=== PATIENT | female | born 1975 | race African-American/Black ===

== ENCOUNTER 2017-12-03 16:50 | Observation (INO) | payer OTHER ==
[~2017-12-03] VITALS: Ht 165.1 cm; Wt 90.0 kg
[~2017-12-03 16:50] MED LIST: ALEV220T14 PO
[2017-12-03 17:24] VITALS: BP 121/82; PULSE 75; RESP 18; TEMP 98.5; O2SAT 96
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
[2017-12-03 18:31] LABS: AUTOMATED NEUTROPHIL # 2.8 TH/MM3 (1.8-7.7); BASOPHIL % 0.8 % (0.0-2.0); EOSINOPHIL # 0.1 TH/MM3 (0-0.4); EOSINOPHIL % 1.7 % (0.0-4.0); HEMATOCRIT 47.5 % (35.0-46.0); HEMOGLOBIN 15.9 GM/DL (11.6-15.3); LYMPH % 33.4 % (9.0-44.0); LYMPHOCYTE # 1.7 TH/MM3 (1.0-4.8); MEAN CELL VOLUME 86.1 FL (80.0-100.0); MEAN CORPUSCULAR HEMOGLOBIN 28.9 PG (27.0-34.0); MEAN CORPUSCULAR HGB CONC 33.6 % (32.0-36.0); MEAN PLATELET VOLUME 7.9 FL (7.0-11.0); MONO % 8.6 % (0.0-8.0); MONOCYTE # 0.4 TH/MM3 (0-0.9); NEUT % 55.5 % (16.0-70.0); PLATELET COUNT 370 TH/MM3 (150-450); RED BLOOD COUNT 5.52 MIL/MM3 (4.00-5.30); RED CELL DISTRIBUTION WIDTH 14.4 % (11.6-17.2); WHITE BLOOD COUNT 5.1 TH/MM3 (4.0-11.0)
--- NOTE | 2017-12-03 18:55 | RADRPT ---
EXAM DATE/TIME: 12/03/2017 18:08 [facility] COMPARISON: No previous studies available for comparison. INDICATIONS : Patient complains of chest pain and shortness of breath. MEDICAL HISTORY : None. SURGICAL HISTORY : None. ENCOUNTER: Initial ACUITY: 1 day PAIN SCORE: 4/10 LOCATION: chest FINDINGS: A single view of the chest demonstrates the lungs to be symmetrically aerated without evidence of mas s, infiltrate or effusion. The cardiomediastinal contours are unremarkable. Osseous structures are intact. CONCLUSION: No acute disease. Ronald Delacruz MD on December 03, 2017 at 18:54 Board Certified Radiologist. This report was verified electronically.
[2017-12-03] MEDS ORDERED: ASPIRIN 81 MG CHEW TAB PO ONE (19:15)
[2017-12-03 19:26] VITALS: BP 120/72; PULSE 75; RESP 16; O2SAT 98
[2017-12-03 19:39] LABS: ALBUMIN 3.8 GM/DL (3.4-5.0); AST (GOT) 13 U/L (15-37); BICARBONATE 22.8 MEQ/L (21.0-32.0); BLOOD UREA NITROGEN 10 MG/DL (7-18); CALCIUM 9.1 MG/DL (8.5-10.1); CHLORIDE 106 MEQ/L (98-107); CREATININE 0.78 MG/DL (0.50-1.00); GLOMERULAR FILTRATION RATE 97 ML/MIN (>89); GLUCOSE,RANDOM 81 MG/DL (74-106); SODIUM (NA) 136 MEQ/L (136-145)
[2017-12-03 19:48] LABS: ALKALINE PHOSPHATASE 82 U/L (45-117); ALT (GPT) 17 U/L (10-53); TOTAL BILIRUBIN ADULT 0.5 MG/DL (0.2-1.0); TOTAL PROTEIN 8.4 GM/DL (6.4-8.2); TROPONIN I LESS THAN 0.02 NG/ML (0.02-0.05)
[2017-12-03 19:50] LABS: ACETAMINOPHEN LESS THAN 2.0 MCG/ML (10.0-30.0)
--- NOTE | 2017-12-03 20:05 | PD ---
Data Data Last Documented VS Vital Signs Date Time Temp Pulse Resp B/P (MAP) Pulse Ox O2 Delivery O2 Flow Rate FiO2 12/03/17 19:26 75 16 120/72 (88) 98 Room Air 12/03/17 17:24 98.5 Orders Orders Complete Blood Count With Diff (12/03/17 17:24) Comprehensive Metabolic Panel (12/03/17 17:24) Thyroid Stimulating Hormone (12/03/17 17:24) Electrocardiogram (12/03/17 17:24) Oximetry (12/03/17 17:24) Ecg Monitoring (12/03/17 17:24) Beta Hcg (Quant/Titer) (12/03/17 17:24) Psych Screen (12/03/17 17:24) Drug Screen, Random Urine (12/03/17 17:24) Alcohol (Ethanol) (12/03/17 17:24) Salicylates (Aspirin) (12/03/17 17:24) Tylenol (Acetaminophen) (12/03/17 17:24) Chest, Single Ap (12/03/17 17:43) Aspirin Chew (Aspirin Chew) (12/03/17 19:15) Ckmb (Isoenzyme) Profile (12/03/17 19:05) Troponin I (12/03/17 19:05) Admit Order (Ed Use Only) (12/03/17 20:03) Labs Laboratory Tests Test 12/03/17 17:30 12/03/17 18:25 12/03/17 19:05 White Blood Count 5.1 TH/MM3 Red Blood Count 5.52 MIL/MM3 Hemoglobin 15.9 GM/DL Hematocrit 47.5 % Mean Corpuscular Volume 86.1 FL Mean Corpuscular Hemoglobin 28.9 PG Mean Corpuscular Hemoglobin Concent 33.6 % Red Cell Distribution Width 14.4 % Platelet Count 370 TH/MM3 Mean Platelet Volume 7.9 FL Neutrophils (%) (Auto) 55.5 % Lymphocytes (%) (Auto) 33.4 % Monocytes (%) (Auto) 8.6 % Eosinophils (%) (Auto) 1.7 % Basophils (%) (Auto) 0.8 % Neutrophils # (Auto) 2.8 TH/MM3 Lymphocytes # (Auto) 1.7 TH/MM3 Monocytes # (Auto) 0.4 TH/MM3 Eosinophils # (Auto) 0.1 TH/MM3 Basophils # (Auto) 0.0 TH/MM3 CBC Comment DIFF FINAL Differential Comment Urine Opiates Screen NEG Urine Barbiturates Screen NEG Urine Amphetamines Screen NEG Urine Benzodiazepines Screen NEG Urine Cocaine Screen NEG Urine Cannabinoids Screen POS Blood Urea Nitrogen 10 MG/DL Creatinine 0.78 MG/DL Random Glucose 81 MG/DL Total Protein 8.4 GM/DL Albumin 3.8 GM/DL Calcium Level 9.1 MG/DL Alkaline Phosphatase 82 U/L Aspartate Amino Transf (AST/SGOT) 13 U/L Alanine Aminotransferase (ALT/SGPT) 17 U/L Total Bilirubin 0.5 MG/DL Sodium Level 136 MEQ/L Potassium Level 3.9 MEQ/L Chloride Level 106 MEQ/L Carbon Dioxide Level 22.8 MEQ/L Anion Gap 7 MEQ/L Estimat Glomerular Filtration Rate 97 ML/MIN Total Creatine Kinase 91 U/L Troponin I LESS THAN 0.02 NG/ML Thyroid Stimulating Hormone 3rd Gen 1.390 uIU/ML Human Chorionic Gonadotropin, Quant 2 MIU/ML Salicylates Level 1.8 MG/DL Acetaminophen Level LESS THAN 2.0 MCG/ML Ethyl Alcohol Level LESS THAN 3 MG/DL MDM Supervised Visit with SAIMA: No Narrative Course The patient was initially evaluated by the previous provider and signed out to me at the beginning of my shift pending labs and disposition. He is no for further details. Briefly this is a 42-year-old female who is brought in under Morales act, however is also complained of chest pain. According to the Morales act the patient stated that she was done with it all and wanted to . The patient is denying suicidal ideation. She states that she was in an argument with her boyfriend, and stated that she felt tired. She has no thoughts of suicide. She states that at the time she was having substernal chest pressure, left arm heaviness and left arm numbness. She denies history of cardiac disease. The previous provider felt that if her cardiac workup was negative, that she should be admitted to the chest pain center for further cardiac evaluation. Patient's EKG shows no signs of ischemia. CBC shows slight hemoconcentration with a hemoglobin of 15.9, CMP is unremarkable, cardiac enzymes are negative. Chest x- ray shows no acute disease. The patient was given aspirin and was made aware of all findings. She is amenable to plan to being admitted to the chest pain center. Diagnosis Primary Impression: Chest pain rule out [place] Additional Impression: Morales act Admitting Information Admitting Physician Requests: Observation Tyrone Grove MD Dec 03, 2017 20:05
[2017-12-03] MEDS ORDERED: SODIUM CHLORIDE 0.9% FLUSH 10 ML FLUSH IV FLUSH SCH (21:00)
[2017-12-03] MEDS ORDERED: SODIUM CHLORIDE 0.9% FLUSH 10 ML FLUSH IV FLUSH PRN (21:00)
[2017-12-03 21:20] VITALS: O2SAT 98
[2017-12-03 21:45] VITALS: BP 123/73; PULSE 69; RESP 18; TEMP 98.2; O2SAT 95
[2017-12-03 23:50] LABS: TROPONIN I LESS THAN 0.02 NG/ML (0.02-0.05)
[2017-12-04 01:31] VITALS: BP 120/68; PULSE 68; RESP 17; TEMP 98.1; O2SAT 98
[2017-12-04 02:11] LABS: TROPONIN I LESS THAN 0.02 NG/ML (0.02-0.05)
[2017-12-04 08:07] VITALS: BP_SYST 94; BP_SYST 97; BP_DIAS 61; BP_DIAS 63; PULSE 70; RESP 18; TEMP 98.4; O2SAT 97
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
--- NOTE | 2017-12-04 08:53 | HHI.HP ---
HPI Primary Care Physician No Primary Care Physician Chief Complaint Chest pain and Morales act History of Present Illness This is a 42-year-old female the presents to ED with complaint of chest discomfort. She also is under Morales act. She states that she was arguing with her boyfriend when the chest discomfort began. Describes the left-sided tightness lasted about 15 minutes. She was short of breath and maybe a little diaphoretic. She said her boyfriend she is tired of dealing with this and admits to saying that she wanted to . States she truly does not have a suicidal thought. She does have a concealed weapon permit to carry a gun and apparently the gun was in the glove box. Her boyfriend called 911 and she was Morales acted. The chest discomfort has not recurred. She then states that she has had issues with costochondritis for years. Denies hypertension, hyperlipidemia, diabetes, or CAD. She smokes 2-3 cigarettes a day. Denies family history of CAD. Patient also states that she was at [facility] yesterday for pain in her right leg that she has had for 2 months. She states x-rays were taken and everything was fine. She states she injured it while she was doing kickboxing 2 months ago. Denies swelling in her legs. Patient states she has had a suicide attempt approximately 10 years ago. Denies other psychiatric issues. (Homer Herrera) Review of Systems General: Patient denies fevers, chills, and recent travel HEENT: Patient denies headache, sore throat, difficulty swallowing. Cardiovascular: Has the chest discomfort as mentioned above. Denies sensation of heart beating rapidly or irregularly. No syncope. Mild diaphoresis. Respiratory: She was short of breath. Denies inspirational chest discomfort. Denies coughing wheezing or hemoptysis. GI: Patient denies nausea, vomiting, diarrhea, abdominal pain, bloody stools. Musculoskeletal: Complains of pain in her right leg and points just below the right knee on anterior aspect. Patient denies joint pain or edema. Denies calf pain or edema. Neurovascular: Patient denies numbness, tingling, weakness in extremities. Denies headache. Endocrine: Denies polyuria and polydipsia. Hematologic: Denies easy bruising. Skin: Denies rash or itching. (Homer Herrera) Past Family Social History Allergies: Coded Allergies: No Known Allergies (Verified Adverse Reaction, Unknown, 12/03/17) Past Medical History Ovarian cancer in 2015 with hysterectomy. Tobacco abuse. Denies hypertension, hyperlipidemia, diabetes, and CAD. Past Surgical History Hysterectomy in 2014. Reported Medications Reported Meds & Active Scripts Active Active Ordered Medications Current Medications Medications (Trade) Dose Ordered Sig/Song Route Start Time Stop Time Status Last Admin (NS Flush) 2 ml UNSCH PRN IV FLUSH 12/03/17 21:00 (NS Flush) 2 ml BID IV FLUSH 12/03/17 21:00 12/03/17 21:00 Family History Denies family history of CAD. Social History Smokes 2-3 cigarettes per day. Smokes marijuana 2-3 times per week. Has occasional alcohol. (Homer Herrera) Physical Exam Vital Signs Vital Signs Date Time Temp Pulse Resp B/P (MAP) Pulse Ox O2 Delivery O2 Flow Rate FiO2 12/04/17 08:07 98.4 70 18 97/63 (74) 97 12/04/17 01:31 98.1 68 17 120/68 (85) 98 12/03/17 21:45 98.2 69 18 123/73 (90) 95 12/03/17 21:28 12/03/17 21:20 98 12/03/17 19:26 75 16 120/72 (88) 98 Room Air 12/03/17 17:25 100 Room Air 12/03/17 17:24 98.5 75 18 121/82 (95) 96 Physical Exam GENERAL: This is a well-nourished, well-developed patient, in no apparent distress. Patient speaks in clear complete sentences. Patient is pleasant. HEENT: Head is atraumatic and normocephalic. Neck is supple without lymphadenopathy and trachea is midline. No JVD or carotid bruits. CARDIOVASCULAR: Regular rate and rhythm without murmurs, gallops, or rubs. RESPIRATORY: Clear to auscultation. Breath sounds equal bilaterally. No wheezes , rales, or rhonchi. Chest wall is tender. No use of accessory muscles. GASTROINTESTINAL: Abdomen is nontender, nondistended. Abdomen soft. No obvious pulsatile mass or bruit. No CVA tenderness. Strong femoral pulses bilaterally. Normal bowel sounds in all quadrants. MUSCULOSKELETAL: Patient is moving upper and lower extremities freely. No calf tenderness or edema, no Homans sign. Strong pulses in upper and lower extremities. NEUROLOGICAL: Patient is alert and oriented. Cranial nerves 2-12 are grossly intact. No focal deficits and speech is clear. SKIN: No rash and turgor is normal. Laboratory Laboratory Tests Test 12/03/17 17:30 12/03/17 18:25 12/03/17 19:05 12/03/17 22:55 White Blood Count 5.1 Red Blood Count 5.52 Hemoglobin 15.9 Hematocrit 47.5 Mean Corpuscular Volume 86.1 Mean Corpuscular Hemoglobin 28.9 Mean Corpuscular Hemoglobin Concent 33.6 Red Cell Distribution Width 14.4 Platelet Count 370 Mean Platelet Volume 7.9 Neutrophils (%) (Auto) 55.5 Lymphocytes (%) (Auto) 33.4 Monocytes (%) (Auto) 8.6 Eosinophils (%) (Auto) 1.7 Basophils (%) (Auto) 0.8 Neutrophils # (Auto) 2.8 Lymphocytes # (Auto) 1.7 Monocytes # (Auto) 0.4 Eosinophils # (Auto) 0.1 Basophils # (Auto) 0.0 CBC Comment DIFF FINAL Differential Comment Urine Opiates Screen NEG Urine Barbiturates Screen NEG Urine Amphetamines Screen NEG Urine Benzodiazepines Screen NEG Urine Cocaine Screen NEG Urine Cannabinoids Screen POS Blood Urea Nitrogen 10 Creatinine 0.78 Random Glucose 81 Total Protein 8.4 Albumin 3.8 Calcium Level 9.1 Alkaline Phosphatase 82 Aspartate Amino Transf (AST/SGOT) 13 Alanine Aminotransferase (ALT/SGPT) 17 Total Bilirubin 0.5 Sodium Level 136 Potassium Level 3.9 Chloride Level 106 Carbon Dioxide Level 22.8 Anion Gap 7 Estimat Glomerular Filtration Rate 97 Total Creatine Kinase 91 81 Troponin I LESS THAN 0.02 LESS THAN 0.02 Thyroid Stimulating Hormone 3rd Gen 1.390 Human Chorionic Gonadotropin, Quant 2 Salicylates Level 1.8 Acetaminophen Level LESS THAN 2.0 Ethyl Alcohol Level LESS THAN 3 Test 12/04/17 01:30 Total Creatine Kinase 79 Troponin I LESS THAN 0.02 (Homer Herrera) Result Diagram: 12/03/17 1730 12/03/17 1905 Imaging Last 48 hours Impressions Chest X-Ray 12/03/17 5293 Signed Impressions: Service Date/Time: Sunday, December 03, 2017 18:08 - CONCLUSION: No acute disease. Ronald Delacruz MD Course EKGs are sinus rhythm without significant ST segment depressions or elevations. There is first-degree AV block. (Homer Herrera) Caprini VTE Risk Assessment Caprini VTE Risk Assessment: No/Low Risk (score <= 1) Caprini Risk Assessment Model Point Value = 1 Point Value = 2 Point Value = 3 Point Value = 5 Age 41-60 Minor surgery BMI > 25 kg/m2 Swollen legs Varicose veins or History of unexplained or recurrent spontaneous Oral contraceptives or hormone replacement Sepsis (< 1 month) Serious lung disease, including pneumonia (< 1 month) Abnormal pulmonary function Acute myocardial infarction Congestive heart failure (< 1 month) History of inflammatory bowel disease Medical patient at bed rest Age 61-74 Arthroscopic surgery Major open surgery (> 45 min) Laparoscopic surgery (> 45 min) Malignancy Confined to bed (> 72 hours) Immobilizing plaster cast Central venous access Age >= 75 History of VTE Family history of VTE Factor V Leiden Prothrombin [id number] Lupus anticoagulant Anticardiolipin antibodies Elevated serum homocysteine Heparin-induced thrombocytopenia Other congenital or acquired thrombophilia Stroke (< 1 month) Elective arthroplasty Hip, pelvis, or leg fracture Acute spinal cord injury (< 1 month) Prophylaxis Regimen Total Risk Factor Score Risk Level Prophylaxis Regimen 0-1 Low Early ambulation 2 Moderate Order ONE of the following: *Sequential Compression Device (SCD) *Heparin 5000 units SQ BID 3-4 Higher Order ONE of the following medications: *Heparin 5000 units SQ TID *Enoxaparin/Lovenox 40 mg SQ daily (WT < 150 kg, CrCl > 30 mL/min) *Enoxaparin/Lovenox 30 mg SQ daily (WT < 150 kg, CrCl > 10-29 mL/min) *Enoxaparin/Lovenox 30 mg SQ BID (WT < 150 kg, CrCl > 30 mL/min) AND/OR *Sequential Compression Device (SCD) 5 or more Highest Order ONE of the following medications: *Heparin 5000 units SQ TID (Preferred with Epidurals) *Enoxaparin/Lovenox 40 mg SQ daily (WT < 150 kg, CrCl > 30 mL/min) *Enoxaparin/Lovenox 30 mg SQ daily (WT < 150 kg, CrCl > 10-29 mL/min) *Enoxaparin/Lovenox 30 mg SQ BID (WT < 150 kg, CrCl > 30 mL/min) AND *Sequential Compression Device (SCD) (Homer Herrera) Assessment and Plan Assessment and Plan * Chest pain: Her symptoms appear atypical. She has had serial cardiac enzymes and EKGs for ruling out purposes. She has been seen by Dr. Sinha of cardiology in the chest pain center and will have a Giovani protocol ETT. His stress test is nonischemic she would be medically cleared and then transferred to psych unit. * Morales act: Patient admits to making a statement that she wanted to . States she does not have a plan however she does have a weapon. I discussed the patient with Dr. Chau, he has evaluated the patient. He states that after she has been medically clear that we can admit the patient to psychiatry. * Tobacco abuse: Patient has been counseled on the importance of smoking cessation. Patient is stable at this time. She is agreeable to this plan. Patient has been medically cleared and will be admitted to psychiatry under the care of Dr Chau. (Homer Herrera) Assessment and Plan Addendum by Dr. Sinha Patient's medical chart was reviewed, discussed with ZUHAIR, seen and examined personally. I am in agreement with the documentation as given above. Patient's ongoing episodes of chest pain are very atypical for cardiovascular disease. She has known history of costochondritis, musculoskeletal chest pain however pain yesterday it was slightly different and obviously stress produced. In spite of low probability of cardiovascular etiology we will evaluate her with an exercise stress test to be sure she is clear medically for transfer to psychiatry. (Poncho Sinha MD) Homer Herrera Dec 04, 2017 08:53 Poncho Sinha MD Dec 04, 2017 09:38
[2017-12-04 09:03] VITALS: BP 108/78; PULSE 82; RESP 18; TEMP 98.6; O2SAT 99
--- NOTE | 2017-12-04 10:19 | HHI.DCPOC ---
Discharge Care Plan Diagnosis: (1) Adjustment disorder with depressed mood (2) Chest pain, atypical (3) Tobacco abuse Goals to Promote Your Health * To prevent worsening of your condition and complications * To maintain your health at the optimal level Directions to Meet Your Goals Take your medications as prescribed Follow your dietary instruction Follow activity as directed Keep your appointments as scheduled Take your immunizations and boosters as scheduled If your symptoms worsen call your PCP, if no PCP go to Urgent Care Center or Emergency Room Smoking is Dangerous to Your Health. Avoid second hand smoke Call the 24-hour hour crisis hotline for domestic abuse at Homer Herrera Dec 04, 2017 10:19
--- NOTE | 2017-12-04 10:41 | EKG ---
Date Performed: 12/03/2017 Time Performed: 17:30:03 PTAGE: 42 years EKG: Sinus rhythm NORMAL ECG NO PREVIOUS TRACING DOCTOR: Pete Almeida Interpretating Date/Time 12/04/2017 10:40:51
--- NOTE | 2017-12-04 15:48 | EKG ---
Date Performed: 12/04/2017 Time Performed: 01:29:02 PTAGE: 42 years EKG: Sinus rhythm WITH FIRST DEGREE AV BLOCK ABNORMAL ECG NO CHANGE PREVIOUS TRACING : 12/03/2017 22.10 DOCTOR: Poncho Sinha Interpretating Date/Time 12/04/2017 15:47:40
--- NOTE | 2017-12-04 15:48 | EKG ---
Date Performed: 12/03/2017 Time Performed: 22:10:27 PTAGE: 42 years EKG: Sinus rhythm WITH FIRST DEGREE AV BLOCK ABNORMAL ECG NO CHANGE PREVIOUS TRACING : 12/03/2017 21.01 DOCTOR: Poncho Sinha Interpretating Date/Time 12/04/2017 15:47:58
--- NOTE | 2017-12-04 15:49 | EKG ---
Date Performed: 12/03/2017 Time Performed: 21:01:52 PTAGE: 42 years EKG: Sinus rhythm WITH FIRST DEGREE AV BLOCK ABNORMAL ECG NO SIG CHANGE PREVIOUS TRACING : 12/03/2017 17.30 DOCTOR: Poncho Sinha Interpretating Date/Time 12/04/2017 15:48:28
--- NOTE | 2017-12-06 16:09 | TR ---
Date Performed: 12/04/2017 Time Performed: 09:55:27 DOCTOR: Gloria Salazar DRUG LIST: CLINICAL HISTORY: REASON FOR TEST: Chest pain REASON FOR ENDING: OBSERVATION: CONCLUSION: YANNI PROTOCOL ETT. NO CP OR SOB. TEST STOPPED AFTER EXCEEDING GOAL HR SECONDARY TO LEG FATIGUE. NO ST CHANGES TO SUGGEST ISHEMIA.Maximum JK=000 % Max HR Achieved=91.0% Maximum GY=081/6 4 Total Exercise Time=4:46 COMMENTS: No ischemia
== END 2017-12-04 11:25 ==
LOC: NEPC 16:50 → UNDOADMOB 20:04 → NEDA 20:04 → NEPFCDU 21:28 → NEPGCP 12-04 08:39 → NEPFCDU 12-04 08:39 → UNDODISOB 12-04 11:25
PROVIDERS: ADMIT Internal Medicine Interventional Cardiology; ATTEND Internal Medicine Interventional Cardiology
DX: R07.89 Other chest pain (principal); R06.02 Shortness of breath; F43.21 Adjustment disorder with depressed mood; R45.851 Suicidal ideations; I44.0 Atrioventricular block, first degree; R94.31 Abnormal electrocardiogram [ECG] [EKG]; R20.0 Anesthesia of skin; F12.90 Cannabis use, unspecified, uncomplicated; F17.210 Nicotine dependence, cigarettes, uncomplicated; Z85.43 Personal history of malignant neoplasm of ovary; Z91.5 Personal history of self-harm
CPT/HCPCS: 71045; 80053; 80307; 82550; 84443; 84484; 84702; 85025; 93005; 93017; 99285; G0378

== ENCOUNTER 2017-12-04 11:27 | Inpatient (IN) | payer SELFPAY ==
[~2017-12-04] VITALS: Ht 165.1 cm; Wt 89.9 kg
[2017-12-04 11:53] VITALS: BP 111/71; PULSE 79; RESP 16; TEMP 98.2; O2SAT 97
[2017-12-04] MEDS ORDERED: diphenhydrAMINE HCL 50 MG CAP - HS PRN PO (14:15)
[2017-12-04] MEDS ORDERED: ALUMINUM/MAGNESIUM/SIMETH 30 ML CUP PO PRN (14:15)
[2017-12-04] MEDS ORDERED: LORazepam 2 MG/ML VIAL IM PRN (14:15)
[2017-12-04] MEDS ORDERED: LORazepam 1 MG TAB PO PRN (14:15)
[2017-12-04] MEDS ORDERED: hydrOXYzine HCL 50 MG TAB PO PRN (14:15)
[2017-12-04] MEDS ORDERED: diphenhydrAMINE HCL 50 MG/ML VIAL - HS PRN IM (14:15)
[2017-12-04] MEDS ORDERED: MAGNESIUM HYDROXIDE SUSP 30 ML CUP PO PRN (14:15)
[2017-12-04] MEDS ORDERED: ACETAMINOPHEN 325 MG TAB PO PRN (14:15)
[2017-12-04 16:43] VITALS: BP 132/72; PULSE 80; RESP 18; TEMP 98; O2SAT 98
[2017-12-04] MEDS ORDERED: REMOVE OLD NICOTINE PATCH T-DERMAL SCH (21:00)
[2017-12-05 05:30] VITALS: BP 105/57; PULSE 90; RESP 16; TEMP 97.6; O2SAT 92
[2017-12-05] MEDS ORDERED: NICOTINE 21 MG/24 HR PATCH T-DERMAL SCH (09:00)
[2017-12-05 09:43] LABS: BLOOD UREA NITROGEN 11 MG/DL (7-18); CALCIUM 9.3 MG/DL (8.5-10.1); CHLORIDE 101 MEQ/L (98-107); CREATININE 0.87 MG/DL (0.50-1.00); GLOMERULAR FILTRATION RATE 86 ML/MIN (>89); GLUCOSE,RANDOM 90 MG/DL (74-106); SODIUM (NA) 136 MEQ/L (136-145)
[2017-12-05 09:44] LABS: CHOLESTEROL 184 MG/DL (120-200)
[2017-12-05 09:46] LABS: CHOLESTEROL/ HDL RATIO 3.32 RATIO; HDL CHOLESTEROL 55.3 MG/DL (40.0-60.0); LDL CHOLESTEROL 112 MG/DL (0-99); TRIGLYCERIDES 86 MG/DL (42-150)
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
[2017-12-05 16:31] LABS: HEMOGLOBIN A1C 5.4 % (4.3-6.0)
== END 2017-12-05 17:23 | disposition home or self-care (01) | DRG 881 ==
LOC: H260 11:27
PROVIDERS: ADMIT Psychiatry & Neurology Psychiatry; ATTEND Psychiatry & Neurology Psychiatry
DX: F43.21 Adjustment disorder with depressed mood (principal); F10.10 Alcohol abuse, uncomplicated; F12.90 Cannabis use, unspecified, uncomplicated; Z91.5 Personal history of self-harm; Z91.410 Personal history of adult physical and sexual abuse; Y90.0 Blood alcohol level of less than 20 mg/100 ml
CPT/HCPCS: 80048; 80061; 83036